=== PATIENT | female | born 1990 | race Caucasian/White ===

== ENCOUNTER 2018-11-04 14:11 | Emergency (ER) | payer SELFPAY ==
--- NOTE | 2018-11-04 15:43 | NUR ---
CALLED TWICE AT THE [facility] NO ANSWER [facility].
== END 2018-11-04 15:43 | disposition left against medical advice (07) ==
LOC: MED 14:11
DX: Z53.21 Procedure and treatment not carried out due to patient leaving prior to being seen by health care provider (principal)
CPT/HCPCS: 99283